=== PATIENT | male | born 1975 | race Hispanic/Latino ===

== ENCOUNTER 2024-01-19 20:10 | Emergency (ER) | payer OTHER | END 2024-01-19 22:35 | disposition home or self-care (01) | LOC: ERS 20:10 | DX: R07.89 Other chest pain (principal); V89.2XXA Person injured in unspecified motor-vehicle accident, traffic, initial encounter; W22.11XA Striking against or struck by driver side automobile airbag, initial encounter | CPT/HCPCS: 71045 ==